=== PATIENT | female | born 1955 | race Caucasian/White ===

== ENCOUNTER 2018-06-15 11:30 | Emergency (ER) | payer MEDICAID, OTHER ==
[~2018-06-15] VITALS: Ht 160 cm; Wt 81.8 kg
[~2018-06-15 11:30] MED LIST: METO25TA6 PO
[2018-06-15] MEDS ORDERED: VITAD400 PO (11:40)
[2018-06-15] MEDS ORDERED: GABA-529 PO (11:40)
[2018-06-15 18:15] VITALS: BP 143/85
== END 2018-06-15 18:44 | disposition home or self-care (01) ==
LOC: EMS 11:36
DX: K43.9 Ventral hernia without obstruction or gangrene (principal); I10 Essential (primary) hypertension; Z79.899 Other long term (current) drug therapy; Z88.0 Allergy status to penicillin
CPT/HCPCS: 74176